=== PATIENT | male | born 1945 | race Caucasian/White ===

== ENCOUNTER 2023-10-17 19:58 | Emergency (ER) | payer MEDICARE, BC, SELFPAY ==
[2023-10-17 20:01] VITALS: BP 124/79
[2023-10-17 20:17] LABS: % Basophils 0.2 % (0-2); % Eosinophils 0.1 % (0-6); % Immature Granulocytes 0.2 % (0-0.5); % Lymphocytes 6.5 % (20.5-51.1); % Monocytes 6.3 % (1.7-9.3); % Neutrophils 86.7 % (42.2-75.2); Absolute Lymphocytes 1.1 10^3/uL (1.2-3.4); Absolute Neutrophils 14.1 10^3/uL (1.4-6.5); Hematocrit 39.5 % (39.0-52.0); Hemoglobin 14.1 g/dL (13.0-18.0); Mean Corp Hgb Conc. 35.7 g/dL (33.0-37.0); Mean Corpuscular Hgb 32.3 pg (27.0-31.0); Mean Corpuscular Volume 90.4 fL (80.0-94.0); Mean Platelet Volume 9.1 fL (7.4-10.4); Nucleated Red Blood Cells % 0 % (-); Platelet Count 142 10^3/uL (130-400); Red Blood Cell Count 4.37 10^6/uL (4.70-6.10); Red Cell Dist. Width 12.4 % (11.5-14.5); White Blood Cell Count 16.3 10^3/uL (4.8-10.8)
[2023-10-17 20:26] VITALS: BMI 29.1
[2023-10-17 20:29] LABS: Lactic Acid 1.3 mmol/L (0.7-2.0)
[2023-10-17 20:30] LABS: ALT (SGPT) 18 U/L (0-50); AST (SGOT) 27 U/L (17-59); Albumin 4.7 g/dl (3.5-5.0); Alkaline Phosphatase 79 U/L (38-126); Blood Urea Nitrogen 17 mg/dl (9-20); Calcium 9.4 mg/dl (8.4-10.2); Carbon Dioxide 25 mmol/L (22-30); Chloride 99 mmol/L (98-107); Estimated Creatinine Clearance 65 ml/min; Glucose 152 mg/dl (70-99); Potassium 3.9 mmol/L (3.5-5.1); Sodium 133 mmol/L (135-145); Total Bilirubin 2.6 mg/dl (0.2-1.3); Total Protein 7.2 g/dl (6.3-8.2); eGFR > 60.00
[2023-10-17 20:31] VITALS: BP 160/65
[2023-10-17 20:40] LABS: COVID-19 Antigen Negative (Negative)
[2023-10-17 21:12] VITALS: BP 157/67
[2023-10-17 22:00] VITALS: BP 141/56
--- NOTE | 2023-10-17 22:18 | ED.GENMED ---
History of Present Illness
<BILL Abad - Last Filed: 10/17/23 22:33>
General
Chief Complaint: Fever
Source: patient and spouse
Exam Limitations: none
Time Seen by Provider: 10/17/23 22:07
Travel History
Have you had any contact with someone who has COVID-19?: No
Do you have any symptoms of coronavirus? Fever > 100 degrees, chills, cough, shortness of breath, sore throat, loss of taste or smell, muscle aches, or headache?: Yes
Symptoms:: fever, cough
History of Present Illness
History of Present Illness:
77 YO M with a PMH of back surgery and melanoma presents to the ER [facility] with complaints of fever, cough, fatigue, and weakness x 1 day. Pt reports he always has a slight cough, but states it's worse than usual. He is coughing up some clear
phlegm. Pt reports he always has diarrhea, but denies blood in his stool. Denies urinary symptoms. He also complains of a slight headache x 1 day. He did get relief from his fever and headache with Tylenol. Last dose of Tylenol was at 6 p.m. Denies
use of aspirin or anticoagulants. Pt has not tried any cough medication yet. His states they were more concerned about his fever which is why she brought him in [facility].
Pt also complains of mild right ear pain. He reports relief with Tylenol.
Denies CP, SOB, N, and V. Denies dysphagia. Denies hemoptysis. Denies changes in vision. Denies abdominal pain. Denies calf pain.
Pt has not smoked since the 70s, is a social drinker, and denies drug use.
Past History
<BILL Abad - Last Filed: 10/17/23 22:33>
Past History
ED Past Medical History: HTN and Hypercholesterolemia
Social History
Tobacco: Former smoker
Alcohol: Occasional
Drug: None
Personal:
Living: with family
Review of Systems
<Lexii Ochoa [facility] - Last Filed: 10/17/23 22:33>
Review of Systems
Allergies reviewed?: No
Constitutional: Reports fever
Respiratory: Reports cough
Cardiac: Reports no symptoms
ABD/GI: Reports no symptoms
: Reports no symptoms
Musculoskeletal: Reports no symptoms
Skin: Reports no symptoms
Phy Exam
<Lexii Ochoa [facility] - Last Filed: 10/17/23 22:33>
Physical Exam
Physical Exam:
Normal S1 and S2 without murmur
Breath sounds are clear and equal B/L
TM visible in right ear without erythema
General Physical Exam
General Presentation: well appearing
General age: appears stated age
General Skin: warm
General Habitus: normal
General Mental: alert
General Hydration: appears well hydrated
Cardiovascular Exam
Cardiovascular Exam: regular rate/rhythm
Pulmonary Exam
Pulmonary Exam: lungs clear, no respiratory distress, no rales, no rhonchi and no wheezing
Gastrointestinal Exam
Gastrointestinal Exam: non tender and soft
Course
<Lexii Ochoa [facility] - Last Filed: 10/17/23 22:33>
Orders/Labs/Results
Orders:
Orders
10/17/23 20:09
CBC/With Diff [Complete Blood Count/With Diff] Urgent
CMP [Comprehensive Metabolic Panel] Urgent
COVID-19 Antigen Urgent
Source: Nasal Swab
Lactic Acid Urgent
Influenza A+B Rapid Molecular Urgent
[facility] Source: Nasal Swab
Specimen Description:
10/17/23 20:31
CR Chest - 2 Views Urgent
Comment:
Reason For Exam: Cough, fever
10/17/23 22:37
Cardiac Monitoring- Treatment ONCE
Urinalysis Reflex To Culture Urgent
0.9% Sodium Chloride 500 ml [Nss] 500 ml IV BOLUS
Acetaminophen [Tylenol] 1,000 mg PO NOW STA
10/17/23 22:45
Blood Culture Q30M
[facility] Source: Blood/Venous
Specimen Description:
10/17/23 23:15
Blood Culture Q30M
[facility] Source: Blood/Venous
Specimen Description:
10/18/23 02:45
Lactic Acid Q4H
Comment: CANCEL 2nd LACTIC ACID IF 1st LACTIC ACID IS LESS THAN 2
Abnormal Lab Results
10/17/23
20:09
WBC 16.3 H 10^3/uL
(4.8-10.8)
RBC 4.37 L 10^6/uL
(4.70-6.10)
MCH 32.3 H pg
(27.0-31.0)
Absolute Neuts (auto) 14.1 H 10^3/uL
(1.4-6.5)
Absolute Lymphs (auto) 1.1 L 10^3/uL
(1.2-3.4)
Absolute Monos (auto) 1.0 H 10^3/uL
(0.1-0.6)
Neutrophils % 86.7 H %
(42.2-75.2)
Lymphocytes % 6.5 L %
(20.5-51.1)
Sodium 133 L mmol/L
(135-145)
Glucose 152 H mg/dl
(70-99)
Total Bilirubin 2.6 H mg/dl
(0.2-1.3)
10/17/23 20:09
10/17/23 20:09
Vital Signs
Initial and Last Documented VS:
Initial Vital Signs
Temp Pulse Resp BP Pulse Ox
102.5 F H 98 18 124/79 96
10/17/23 20:01 10/17/23 20:01 10/17/23 20:01 10/17/23 20:01 10/17/23 20:01
Last Documented Vital Signs
Temp Pulse Resp BP Pulse Ox
100.7 F H 96 34 157/67 93
10/17/23 21:12 10/17/23 21:12 10/17/23 21:12 10/17/23 21:12 10/17/23 21:12
<Riya Hammond MD - Last Filed: 10/17/23 23:02>
Orders/Labs/Results
Orders:
Orders
10/17/23 20:09
CBC/With Diff [Complete Blood Count/With Diff] Urgent
CMP [Comprehensive Metabolic Panel] Urgent
COVID-19 Antigen Urgent
Source: Nasal Swab
Lactic Acid Urgent
Influenza A+B Rapid Molecular Urgent
[facility] Source: Nasal Swab
Specimen Description:
10/17/23 20:31
CR Chest - 2 Views Urgent
Comment:
Reason For Exam: Cough, fever
10/17/23 22:37
Cardiac Monitoring- Treatment ONCE
Urinalysis Reflex To Culture Urgent
0.9% Sodium Chloride 500 ml [Nss] 500 ml IV BOLUS
Acetaminophen [Tylenol] 1,000 mg PO NOW STA
10/17/23 22:45
Blood Culture Q30M
[facility] Source: Blood/Venous
Specimen Description:
10/17/23 23:15
Blood Culture Q30M
[facility] Source: Blood/Venous
Specimen Description:
10/18/23 02:45
Lactic Acid Q4H
Comment: CANCEL 2nd LACTIC ACID IF 1st LACTIC ACID IS LESS THAN 2
Abnormal Lab Results
10/17/23
20:09
WBC 16.3 H 10^3/uL
(4.8-10.8)
RBC 4.37 L 10^6/uL
(4.70-6.10)
MCH 32.3 H pg
(27.0-31.0)
Absolute Neuts (auto) 14.1 H 10^3/uL
(1.4-6.5)
Absolute Lymphs (auto) 1.1 L 10^3/uL
(1.2-3.4)
Absolute Monos (auto) 1.0 H 10^3/uL
(0.1-0.6)
Neutrophils % 86.7 H %
(42.2-75.2)
Lymphocytes % 6.5 L %
(20.5-51.1)
Sodium 133 L mmol/L
(135-145)
Glucose 152 H mg/dl
(70-99)
Total Bilirubin 2.6 H mg/dl
(0.2-1.3)
10/17/23 20:09
10/17/23 20:09
Vital Signs
Initial and Last Documented VS:
Initial Vital Signs
Temp Pulse Resp BP Pulse Ox
102.5 F H 98 18 124/79 96
10/17/23 20:01 10/17/23 20:01 10/17/23 20:01 10/17/23 20:01 10/17/23 20:01
Last Documented Vital Signs
Temp Pulse Resp BP Pulse Ox
100.7 F H 96 34 157/67 93
10/17/23 21:12 10/17/23 21:12 10/17/23 21:12 10/17/23 21:12 10/17/23 21:12
Jadelt;BILL Abad - Last Filed: 10/17/23 22:33>
MDM/Problems Addressed
Differential Diagnosis Includes:
Acute bronchitis, PNA, Upper respiratory infection, FLU, COVID,
MDM/Problems Addressed:
Cough, fever, and fatigue x 1 day
Chronic conditions affecting care: HTN
<BILL Abad - Last Filed: 10/17/23 22:33>
*Critical Care Note
Total Time (30-74mins, 75-104mins- exclusive of procedures): Not Applicable
ED Attending Note
<BILL Abad - Last Filed: 10/17/23 22:33>
-
Portions of this chart may have been created with voice recognition software.� Occasional wrong word or��sound alike� substitutions may have occurred due to the inherent limitations of voice recognition software.
<Riya Hammond MD - Last Filed: 10/17/23 23:02>
ED Attending Note
Patient seen and examined by attending physician: Yes
I performed the substantive portion of visit, reviewed & personally made and approve the management plan that is documented in note by myself or TOY.: Yes
ED Attending Note:
This patient is a 77-year-old male presents with rigors/shakes yesterday assoc with fever...no shakes today. Today, patient notes that he is weak and tired all day, noted to be sleeping for several hours, with a temp of 103.1. He denies change to
his chronic cough although his states that it sounds 'deeper' today. He also had mild right ear pain earlier today which is now resolved. He denies nausea, vomiting, chest pain, dyspnea, urinary symptoms, new rash, abdominal pain, or other
complaints. Patient does note he has not had as much to eat or drink today as usual. On exam, pupils equal round reactive to light, no photophobia, TMs clear bilaterally, oropharynx clear, voice clear. Neck supple, nods yes and no easily. Heart
regular rate and rhythm, lungs slight Rales noted at the right base, otherwise CTA, no retractions, no wheezing or rhonchi, no obvious cough. Abdomen soft nontender, skin warm and well-perfused. No meningismus, negative Kernig, negative presents
de jesus
patient presents to the Emergency Department with _fever and rigors
Number and Complexity of Problems Addressed at the Encounter
� Chronic conditions affecting care:
� Acute Exacerbation and/or Progression of Chronic Illness:
� Differential Diagnosis includes: But not limited to bacteremia, pneumonia, COVID, UTI, etc. etc.
Amount and/or Complexity of Data to be Reviewed and Analyzed
� I performed an independent evaluation of and my interpretation is:
EKG:
CT:
Xrays: Read by radiology and me no specific pneumonia noted
Laboratory Studies: Leukocytosis with neutrophil predominance, lactic acid wnl
Other:
� Review of other/old records reveals:
� Clinical information was obtained by an independent historian:
� Prescriptions/Medications Considered but not given:
� Further testing considered but not performed:
Risk of Complications and/or Morbidity or Mortality of Patient Management
� Social determinants of health affecting care:
� Discussion with other providers (PCP, Hospitalists, Consultants, etc):
� Escalation of care including admission/observation vs risk of discharge considered: 10:57 PM vital signs remained stable, no hypotension, tachycardia, etc. Patient is awake and alert in the bed without respiratory distress.
Clinically I suspect pneumonia and do have worries about the possibility of bacteremia given the shaking rigors and weakness that he had over the last 24 hours. I recommended to both patient and who is bedside admission to the hospital and IV
antibiotics with continued telemetry monitoring however he declines. He understands that there is a possibility of bacteremia which is more serious than a simple outpatient treatment for pneumonia, however he still declines admission at this time,
understands the importance of following these results tomorrow both through the portal and his primary care doctor, and I also described the system that we have in place to follow-up with him. He also understands reasons to return the emergency
department including worsening condition or new symptoms.
Discharge Plan
Departure
Patient Disposition: Home (Routine Discharge)
Date of Disposition: 10/17/23
Time of Disposition: 22:58
Patient with high blood pressure during this ER visit?: Yes
Condition: Good
Discharge Problem:
Pneumonia
Instructions: Pneumonia in adults, Fever, Adult (DC), BLOOD PRESSURE
Prescriptions:
New
amoxicillin-pot clavulanate 875-125 mg tablet
1 tab PO BID Qty: 14 0RF
doxycycline hyclate 100 mg capsule
100 mg PO BID Qty: 14 0RF
No Action
losartan 50 mg Tablet
50 mg PO DAILY
carvedilol 25 mg Tablet
25 mg PO BID
atorvastatin 10 mg Tablet
10 mg PO DAILY
coenzyme Q10 [CoQ-10] 100 mg Capsule
100 mg PO DAILY
cholecalciferol (vitamin D3) [Vitamin D3] 50 mcg (2,000 unit) Capsule
50 mcg PO DAILY
Referrals:
Christo Mistry MD [Family Provider] - Tomorrow
Activity Restrictions/Additional Instructions:
IF YOU DEVELOP SHAKING CHILLS, PERSISTENT FEVER, TROUBLE BREATHING, CHEST PAIN, SEVERE HEADACHE, WEAKNESS, DIZZINESS, VOMITING, OR OTHER WORRISOME SIGNS, PLEASE RETURN TO THE ER IMMEDIATELY. THERE ARE BLOOD TESTS THAT ARE STILL PENDING TONIGHT,
PLEASE HAVE THESE FOLLOWED UP WITH YOUR DOCTOR TOMORROW THIS IS VERY IMPORTANT.
Interventions
Interventions:
*General Assessment Last Done: 10/17/23 20:26
ED- Fall Risk Assessment Last Done: 10/17/23 20:26
ED- Neurological Assessment Last Done: 10/17/23 20:26
ED-Skin Assessment Last Done: 10/17/23 20:26
Discharge Date and Time
Print Language: ICELANDIC
[2023-10-17] MEDS: AUGMENTIN 875 MG/125 MG 1 TABLET PO (23:05)
[2023-10-17] MEDS: TYLENOL 1000 MG PO (23:05)
[2023-10-17] MEDS: VIBRAMYCIN 100 MG PO (23:05)
== END 2023-10-17 23:20 | disposition home or self-care (01) ==
LOC: EMR 19:58
PROVIDERS: Emergency Medicine; EMERGENCY PHYSICIAN Emergency Medicine; FAMILY PHYSICIAN Internal Medicine
DX: J18.9 Pneumonia, unspecified organism (principal); H92.01 Otalgia, right ear; Z11.52 Encounter for screening for COVID-19; R03.0 Elevated blood-pressure reading, without diagnosis of hypertension; I10 Essential (primary) hypertension; E78.00 Pure hypercholesterolemia, unspecified; Z87.891 Personal history of nicotine dependence
CPT/HCPCS: 99283; 71046; 80053; 83605; 85025; 87040; 87502; 87811